=== PATIENT | male | born 1960 | race Caucasian/White ===

== ENCOUNTER → 2017-06-19 | Day surgery (SDC) | payer OTHER ==
[~2017-06-19] VITALS: Ht 172.7 cm; Wt 86.9 kg
[~2017-06-19] MED LIST: ASPI-973 PO; MULT1CAP33 PO; TAMS0.4C98 PO
[2017-06-19 15:10] VITALS: BP 144/99; PULSE 86; RESP 12; O2SAT 96
[2017-06-19 15:20] VITALS: BP 140/97; PULSE 89; RESP 16; O2SAT 95
[2017-06-19 15:25] VITALS: BP 144/92; PULSE 88; RESP 16; O2SAT 95
--- NOTE | 2017-06-19 18:08 | NUR ---
Phlebotomy: Hct 51.7 Per orders 1 unit phlebotomy performed since Hct greater than 40. Patient put out 450 mLs. Tolerated procedure without incident. Discharged home ambulatory in stable condition. This was a one time order. Patient will follow up with Dr. Fishman.
== END | disposition home or self-care (01) ==
LOC: MOCO 09:45
PROVIDERS: ATTEND Internal Medicine Hematology & Oncology
DX: D75.1 Secondary polycythemia (principal)